=== PATIENT | male | born 1985 | race Hispanic/Latino ===

== ENCOUNTER → 2016-06-15 | Outpatient (CLI) | payer OTHER ==
[~2016-06-15] VITALS: Ht 188 cm; Wt 227.7 kg
[~2016-06-15] MED LIST: ALBUTEROL SULF8.5 GM IH; ALLEGRA ALLERG180 MG PO; ALLEGRA30 MG; Ambien PO; BACTRIM,SEPT1 TABLET PO; COLACE100 MG PO; DILAUDID2 MG PO; EPIPEN ADU0.3 MG/0.3; FLUTICASONE PRO16 GM NS; METRONIDAZOLE500 MG PO; MOTRIN IB200 MG PO; Motrin PO; NO HOME MEDS; OXYCODONE-APAP1 EACH PO; TORADOL10 MG PO; VALIUM5 MG PO; VENTOLIN HFA18 GM IH; Vicodin,Norco 5/325 PO
== END | disposition home or self-care (01) ==
LOC: AMB 05-26 12:00
PROC: 0DJD8ZZ Inspection of Lower Intestinal Tract, Via Natural or Artificial Opening Endoscopic (ICD-10-PCS; principal; 2016-06-15)
DX: K64.9 Unspecified hemorrhoids (principal); K62.5 Hemorrhage of anus and rectum; E66.01 Morbid (severe) obesity due to excess calories; Z68.44 Body mass index [BMI] 60.0-69.9, adult; F17.200 Nicotine dependence, unspecified, uncomplicated
CPT/HCPCS: J2250; J3010